=== PATIENT | female | born 1930 | race Caucasian/White ===

== ENCOUNTER 2016-11-28 09:35 | Inpatient (IN) | payer OTHER ==
[~2016-11-28] VITALS: Ht 160 cm; Wt 75.6 kg
[~2016-11-28 09:35] MED LIST: ASCORBIC ACID500 M3 PO; ASPIR-LOW81 MG PO; ASPIRIN EC325 MG PO; Ascorbic Acid,Ester- PO; Aspirin E.C. PO; CELEBREX200 MG PO; CENTRUM SILVER1 EAC3 PO; COLACE CLEAR50 MG PO; CRESTOR40 MG PO; CYANOCOBALAM1000 MCG PO; Coumadin Protocol PO; DONEPEZIL HCL10 MG PO; Dulcolax PO; Ecotrin PO; HAIR, SKIN & N1 EAC1 PO; IRON325 MG PO; LOPRESSOR25 MG PO; NORVASC2.5 MG PO; PLAVIX75 MG PO; Plavix PO; SENNA8.6 M1 PO; SENOKOT,SENN1 TABLET PO; TYLENOL REGULA325 MG PO; VITAMIN D35000 UNIT PO; celeBREX PO
[2016-11-28 15:26] LABS: HEMATOCRIT 32.3 % (36.0-46.0); MCH 30.1 PG (29.0-34.0); MCHC 31.9 G/DL (30.0-36.0); MCV 94.4 FL (83-99); MEAN PLAT.VOLUME 10.3 uM^3 (9.5-12.4); PLATELET COUNT 146 K/uL (156-360); RBC DIS.WIDTH-CV 20.9 % (11.8-14.6); RED BLOOD COUNT 3.42 M/uL (3.80-5.20)
[2016-11-28 15:37] LABS: CHLORIDE 107 mEq/L (99-109); SODIUM 140 mEq/L (136-147)
[2016-11-28 15:38] LABS: GLUCOSE 142 mg/dL (70-99)
[2016-11-28 15:39] LABS: ANION GAP 14 MEQ/L (2-14)
[2016-11-28 15:42] LABS: GFR ESTIMATE (CALCULATED) > 59 mL/min/
[2016-11-28 15:43] LABS: UREA NITROGEN (BUN) 19 mg/dL (9-23)
[2016-11-28 15:49] LABS: TROP-I INTERPRETATION NEGATIVE; TROPONIN-I 0.01 ng/mL (0.0-0.30)
[2016-11-28 19:09] VITALS: BP 190/84
[2016-11-28 20:17] LABS: TROP-I INTERPRETATION NEGATIVE; TROPONIN-I 0.01 ng/mL (0.0-0.30)
[2016-11-28 23:18] VITALS: BP 169/80
[2016-11-29 01:19] LABS: TROP-I INTERPRETATION NEGATIVE; TROPONIN-I < 0.01 ng/mL (0.0-0.30)
[2016-11-29 04:00] VITALS: BP 158/69
[2016-11-29 06:41] LABS: HEMATOCRIT 29.3 % (36.0-46.0); MCH 29.2 PG (29.0-34.0); MCHC 30.4 G/DL (30.0-36.0); MCV 96.1 FL (83-99); MEAN PLAT.VOLUME 10.5 uM^3 (9.5-12.4); PLATELET COUNT 151 K/uL (156-360); RBC DIS.WIDTH-CV 21.1 % (11.8-14.6); RBC DIS.WIDTH-SD 74.8 % (39-53); RED BLOOD COUNT 3.05 M/uL (3.80-5.20); WHITE BLOOD COUNT 8.2 K/uL (4.1-10.2)
[2016-11-29 06:44] LABS: INTER. NORMALIZED RATIO 1.1; PROTHROMBIN TIME 12.1 SEC (10.2-12.9)
[2016-11-29 06:47] LABS: PTT 24.3 SEC (25-37)
[2016-11-29 07:03] LABS: ANION GAP 8 MEQ/L (2-14); CHLORIDE 106 MEQ/L (99-109); GFR ESTIMATE (CALCULATED) > 59 mL/min/; GLUCOSE 114 mg/dL (70-99); POTASSIUM 4.3 MEQ/L (3.7-5.4); SAMPLE HEMOLYSIS CHECK 0; SAMPLE ICTERIC CHECK 0; SAMPLE LIPEMIA CHECK 0; SODIUM 138 MEQ/L (136-147); UREA NITROGEN (BUN) 21 mg/dL (9-23)
[2016-11-29 08:27] VITALS: BP 138/64
[2016-11-29 12:11] VITALS: BP 163/75
[2016-11-29 16:09] VITALS: BP 145/66
[2016-11-29 20:05] VITALS: BP 135/64
[2016-11-29 23:16] VITALS: BP 146/72
[2016-11-30 04:30] VITALS: BP 180/77
[2016-11-30 06:52] LABS: HEMATOCRIT 28.1 % (36.0-46.0); MCH 29.4 PG (29.0-34.0); MCHC 30.6 G/DL (30.0-36.0); MCV 95.9 FL (83-99); MEAN PLAT.VOLUME 10.6 uM^3 (9.5-12.4); PLATELET COUNT 138 K/uL (156-360); RBC DIS.WIDTH-CV 21.2 % (11.8-14.6); RBC DIS.WIDTH-SD 76.4 % (39-53); RED BLOOD COUNT 2.93 M/uL (3.80-5.20); WHITE BLOOD COUNT 8.3 K/uL (4.1-10.2)
[2016-11-30 07:02] LABS: EOSINOPHIL (%) 3.3 % (0-5); EOSINOPHIL COUNT 0.3 K/uL (0-0.3); IMMATURE GRANULOCYTE (%) 0.6 % (0.0-0.7); IMMATURE GRANULOCYTE COUNT 0.1 K/uL; INSTRUMENT ABS NEUTROPHIL CT 5.3 K/uL; LYMPHOCYTE COUNT 1.7 K/uL (1.0-2.8); MONOCYTE (%) 11.5 % (3-12); NEUTROPHIL (%) 63.9 % (45-76); NEUTROPHIL COUNT 5.3 K/uL (1.8-6.4)
[2016-11-30 07:17] LABS: ANION GAP 8 MEQ/L (2-14); CHLORIDE 105 MEQ/L (99-109); GFR ESTIMATE (CALCULATED) > 59 mL/min/; GLUCOSE 109 mg/dL (70-99); POTASSIUM 4.4 MEQ/L (3.7-5.4); SAMPLE HEMOLYSIS CHECK 0; SAMPLE ICTERIC CHECK 0; SAMPLE LIPEMIA CHECK 0; SODIUM 138 MEQ/L (136-147); UREA NITROGEN (BUN) 24 mg/dL (9-23)
[2016-11-30 08:00] VITALS: BP 142/69
[2016-11-30 12:22] VITALS: BP 129/58
[2016-11-30 23:35] VITALS: BP 151/70
[2016-12-01 08:00] VITALS: BP 143/68
[2016-12-01 15:24] VITALS: BP 161/89
[2016-12-02 00:03] VITALS: BP 165/82
[2016-12-02 06:42] LABS: HEMATOCRIT 27.5 % (36.0-46.0); MCHC 30.5 G/DL (30.0-36.0); MCV 94.8 FL (83-99); MEAN PLAT.VOLUME 10.1 uM^3 (9.5-12.4); PLATELET COUNT 144 K/uL (156-360); RBC DIS.WIDTH-CV 21.1 % (11.8-14.6); RBC DIS.WIDTH-SD 73.3 % (39-53); WHITE BLOOD COUNT 8.7 K/uL (4.1-10.2)
[2016-12-02 08:00] VITALS: BP 133/65
[2016-12-02] MEDS ORDERED: TYLENOL EXTRA500 MG PO (15:35)
[2016-12-02] MEDS ORDERED: TORADOL10 MG PO (15:39)
== END 2016-12-02 16:44 | DRG 183 ==
LOC: EME 09:35 → EDOF 15:55 → 3EAST 15:55 → ENRESERV 16:05 → 3EAST 18:05
PROVIDERS: Emergency Medicine; Family Medicine; Internal Medicine
DX: S22.42XA Multiple fractures of ribs, left side, initial encounter for closed fracture (principal); J96.01 Acute respiratory failure with hypoxia; S30.0XXA Contusion of lower back and pelvis, initial encounter; G30.9 Alzheimer's disease, unspecified; F02.80 Dementia in other diseases classified elsewhere, unspecified severity, without behavioral disturbance, psychotic disturbance, mood disturbance, and anxiety; I25.10 Atherosclerotic heart disease of native coronary artery without angina pectoris; E78.5 Hyperlipidemia, unspecified; Z95.5 Presence of coronary angioplasty implant and graft; W18.30XA Fall on same level, unspecified, initial encounter; S60.222A Contusion of left hand, initial encounter; S80.11XA Contusion of right lower leg, initial encounter; S80.12XA Contusion of left lower leg, initial encounter; Z95.1 Presence of aortocoronary bypass graft; G89.11 Acute pain due to trauma; M19.90 Unspecified osteoarthritis, unspecified site; D64.9 Anemia, unspecified; I10 Essential (primary) hypertension; Z96.642 Presence of left artificial hip joint; J98.11 Atelectasis; R53.1 Weakness; R26.2 Difficulty in walking, not elsewhere classified; K59.00 Constipation, unspecified; Z87.891 Personal history of nicotine dependence
CPT/HCPCS: 70450; 70486; 71010; 71250; 73030; 73130; 73560; 74176; 80048; 81003; 84484; 85025; 85027; 85610; 85730; 93005; 97530 GO; 97530 GP; 99281; 99285; J1885; J2405; J3010

== ENCOUNTER 2017-04-13 07:11 | Observation (INO) | payer OTHER ==
[~2017-04-13] VITALS: Ht 162.6 cm; Wt 72.0 kg
[~2017-04-13 07:11] MED LIST changes: +TORADOL10 MG PO; +TYLENOL EXTRA500 MG PO
[2017-04-13 07:49] LABS: HEMATOCRIT 34.7 % (36.0-46.0); HEMOGLOBIN 11.3 G/DL (11.9-15.5); MCH 31.7 PG (29.0-34.0); MCHC 32.6 G/DL (30.0-36.0); MCV 97.2 FL (83-99); PLATELET COUNT 138 K/uL (156-360); RBC DIS.WIDTH-CV 21.3 % (11.8-14.6); RBC DIS.WIDTH-SD 78.1 % (39-53); RED BLOOD COUNT 3.57 M/uL (3.80-5.20); WHITE BLOOD COUNT 6.5 K/uL (4.1-10.2)
[2017-04-13 08:16] LABS: ALBUMIN 3.9 G/DL (3.2-4.8); ALKALINE PHOSPHATASE 63 IU/L (3-129); ALT (GPT) 22 IU/L (3-49); AST (GOT) 36 IU/L (2-34); CHLORIDE 109 MEQ/L (99-109); CREATININE 0.8 MG/DL (0.6-1.3); GFR ESTIMATE (CALCULATED) > 59 mL/min/; GLUCOSE 166 mg/dL (70-99); POTASSIUM 4.3 MEQ/L (3.7-5.4); SODIUM 140 MEQ/L (136-147); TOTAL BILIRUBIN 0.6 MG/DL (0.0-1.0); TOTAL PROTEIN 6.9 G/DL (6.4-8.3); UREA NITROGEN (BUN) 18 mg/dL (9-23)
[2017-04-13] MEDS ORDERED: CELEBREX200 MG PO (10:44)
[2017-04-13] MEDS ORDERED: HAIR SKIN NAIL1 EACH PO (10:45)
[2017-04-13] MEDS ORDERED: TRAMADOL HCL50 MG PO (10:46)
[2017-04-13] MEDS ORDERED: CEPHALEXIN500 MG PO (10:46)
[2017-04-13] MEDS ORDERED: TYLENOL EXTRA500 MG PO (10:47)
[2017-04-13 12:15] VITALS: BP 165/75
[2017-04-13 15:03] VITALS: BP 167/67
[2017-04-13 19:29] VITALS: BP 188/88
[2017-04-13 22:25] VITALS: BP 196/89
[2017-04-14] VITALS (8 sets, daily range): BP systolic 160–211; BP diastolic 64–99
[2017-04-14 06:57] LABS: HEMATOCRIT 32.3 % (36.0-46.0); HEMOGLOBIN 10.1 G/DL (11.9-15.5); MCH 30.9 PG (29.0-34.0); MCHC 31.3 G/DL (30.0-36.0); MCV 98.8 FL (83-99); PLATELET COUNT 145 K/uL (156-360); RBC DIS.WIDTH-CV 21.2 % (11.8-14.6); RBC DIS.WIDTH-SD 78.7 % (39-53); RED BLOOD COUNT 3.27 M/uL (3.80-5.20); WHITE BLOOD COUNT 5.8 K/uL (4.1-10.2)
== END 2017-04-14 18:45 | disposition home or self-care (01) ==
LOC: EME 07:11 → EDOF 10:12 → 5WEST 10:12 → ENRESERV 10:21 → EDOF 10:45 → ENRESERV 11:01 → 5WEST 11:40 → ENPENDDIS 04-14 → 5WEST 04-14 18:45
PROVIDERS: Hospitalist; Nurse Practitioner Family
PROC: 0HQ0XZZ Repair Scalp Skin, External Approach (ICD-10-PCS; principal; 2017-04-14)
DX: L76.22 Postprocedural hemorrhage of skin and subcutaneous tissue following other procedure (principal); T81.31XA Disruption of external operation (surgical) wound, not elsewhere classified, initial encounter; Z79.02 Long term (current) use of antithrombotics/antiplatelets; Z79.82 Long term (current) use of aspirin; I25.10 Atherosclerotic heart disease of native coronary artery without angina pectoris; Z95.5 Presence of coronary angioplasty implant and graft; Z95.1 Presence of aortocoronary bypass graft; I10 Essential (primary) hypertension; G30.9 Alzheimer's disease, unspecified; F02.80 Dementia in other diseases classified elsewhere, unspecified severity, without behavioral disturbance, psychotic disturbance, mood disturbance, and anxiety; Z86.14 Personal history of Methicillin resistant Staphylococcus aureus infection; Z85.038 Personal history of other malignant neoplasm of large intestine; Z96.642 Presence of left artificial hip joint; Z96.611 Presence of right artificial shoulder joint; Z88.1 Allergy status to other antibiotic agents; Z87.891 Personal history of nicotine dependence; Z82.49 Family history of ischemic heart disease and other diseases of the circulatory system; Z82.3 Family history of stroke; Y83.8 Other surgical procedures as the cause of abnormal reaction of the patient, or of later complication, without mention of misadventure at the time of the procedure
CPT/HCPCS: 80053; 85027; 86850; 86900; 86901; 99281; 99285; G0378; J7030